=== PATIENT | female | born 1940 | race Caucasian/White ===

== ENCOUNTER 2021-02-06 15:18 | Emergency (ER) | payer MEDICARE, OTHER ==
[~2021-02-06 15:18] MED LIST: OMNICEF 300 MG300 MG PO; TRAMADOL HCL50 MG PO
[2021-02-06 17:05] LABS: HEMOGLOBIN 13.2 gm/dl (12.3-15.3); RED BLOOD COUNT 4.6 M/UL (4.00-5.10); WHITE BLOOD COUNT 8.4 K/UL (4.5-11.0)
[2021-02-06 17:25] LABS: BUN/CREATININE RATIO 25 (0-10)
[2021-02-06] MEDS ORDERED: CEFUROXIME500 MG PO (19:27)
== END 2021-02-06 19:41 | disposition home or self-care (01) ==
LOC: ER1 15:18
PROVIDERS: Preventive Medicine Occupational Medicine
DX: R10.9 Unspecified abdominal pain (principal); R30.0 Dysuria; I10 Essential (primary) hypertension; F17.200 Nicotine dependence, unspecified, uncomplicated
CPT/HCPCS: 80053; 81001; 83690; 85025; 85652; 86140; 87086; 96374; 96375; 99284; J0696; J1170